=== PATIENT | female | born 1945 | race Two or more races ===

== ENCOUNTER 2019-03-29 12:46 | Emergency (ER) | payer MEDICARE, MEDICAID ==
[~2019-03-29] VITALS: Ht 160 cm; Wt 74.8 kg
--- NOTE | 2019-03-29 13:35 | NUR ---
PT BIB SELF C/O HEADACHE AND NECK PAIN X 1 WEEK, PT IS AAOX4 KYRGYZ SPEAKING ONLY, HOOKED TO MONITOR, V/S STABLE, KEPT RESTED AND COMFORTABLE, WILL CONTINUE TO MONITOR. AWAITING ER MD FOR EVAL.
--- NOTE | 2019-03-29 14:30 | NUR ---
SEEN AND EXAMINED BY DR. MESA
[2019-03-29] MEDS ORDERED: ACETAMINOPHEN ES 500 MG TABLET PO ONE (15:00)
[2019-03-29] MEDS ORDERED: IBUPROFEN 600 MG TABLET PO ONE ×2 (15:00→15:37)
--- NOTE | 2019-03-29 15:00 | NUR ---
IV LINE ESTABLISHED, BLOOD DRAWNED AND SENT TO LAB.
--- NOTE | 2019-03-29 15:04 | NUR ---
[employer] AT BEDSIDE FOR XRAY.
[2019-03-29 15:10] LABS: BASOPHILS # (AUTO) 0.1 /CMM (0.0-0.2); BASOPHILS % (AUTO) 0.9 % (0.0-2.0); HEMATOCRIT 39 % (33-45); LYMPHOCYTES # (AUTO) 1.2 /CMM (0.8-4.8); LYMPHOCYTES % (AUTO) 18.9 % (20.0-44.0); MEAN CORPUSCULAR HGB CONC 33 g/dl (31.0-36.0); MEAN CORPUSCULAR VOLUME 87 fL (82-100); MONOCYTES # (AUTO) 0.4 /CMM (0.1-1.30); MONOCYTES % (AUTO) 7.2 % (2.0-12.0); NEUTROPHILS # (AUTO) 4.3 /CMM (1.8-8.9); PLATELET COUNT (AUTO) 230 /CMM (150-450); RED BLOOD CELL COUNT(AUTO) 4.51 MIL/uL (4.0-5.2); WHITE BLOOD COUNT (AUTO) 6.1 K/uL (4.3-11.0)
[2019-03-29 15:29] LABS: CALCIUM, SERUM 8.4 mg/dL (8.5-10.1); CARBON DIOXIDE 26 mmol/L (21-32); CHLORIDE 105 mmol/L (98-107); CREATININE 0.6 mg/dL (0.6-1.3); GLUCOSE 105 mg/dL (74-106); SODIUM SERUM 140 mmol/L (136-145); UREA NITROGEN, BLOOD 13 mg/dL (7-18)
[2019-03-29 15:34] LABS: ALANINE AMINOTRANSFERASE 50 U/L (12-78); ALBUMIN 3.3 g/dL (3.4-5.0); ALKALINE PHOSPHATASE 71 U/L (46-116); ASPARTATE AMINOTRANSFERASE 24 U/L (15-37); BILIRUBIN,DIRECT 0.1 mg/dL (0.0-0.2); BILIRUBIN,TOTAL 0.4 mg/dL (0.2-1.0)
[2019-03-29] MEDS ORDERED: ACETAMINOPHEN ES 500 MG TABLET ONE (15:37)
[2019-03-29 15:58] VITALS: BP 138/82
--- NOTE | 2019-03-29 16:51 | NUR ---
IV removed. Catheter intact and site benign. Pressure and 4x4 applied to site. No bleeding noted. Patient discharged to home in stable condition. Written and verbal after care instructions given. Patient verbalizes understanding of instruction.
== END 2019-03-29 17:07 | disposition home or self-care (01) ==
LOC: ER 13:00
DX: R51 Headache (principal); M62.838 Other muscle spasm; I10 Essential (primary) hypertension; I44.7 Left bundle-branch block, unspecified
CPT/HCPCS: 36415; 70450-TC; 71045-TC; 80048-TC; 80076-TC; 84484-TC; 85025-TC; 85730-TC